=== PATIENT | male | born 1930 | race Caucasian/White ===

== ENCOUNTER 2017-01-25 14:54 | Outpatient (CLI) ==
[2017-01-25 15:28] LABS: BASOPHILS % (AUTO) 0.5 % (0.0-3.0); EOSINOPHILS # (AUTO) 0.1 K/ul (0.0-0.7); EOSINOPHILS % (AUTO) 3.1 % (0.0-7.0); HEMATOCRIT 24.4 % (42.0-52.0); HEMOGLOBIN 8.3 g/dl (14.0-18.0); LYMPHOCYTES # (AUTO) 1.1 K/uL (0.60-3.4); LYMPHOCYTES % (AUTO) 57.7 (10.0-50.0); MEAN CORPUSCULAR HEMOGLOBIN 36.1 pg (27.0-31.0); MEAN CORPUSCULAR VOLUME 106.1 fl (80.0-94.0); MONOCYTES # (AUTO) 0.1 K/uL (0.4-2.0); MONOCYTES % (AUTO) 3.1 (0-10); NEUTROPHILS # (AUTO) 0.7 K/ul (2.0-6.9); NEUTROPHILS % (AUTO) 34.6
[2017-01-25 16:03] LABS: WHITE BLOOD COUNT 1.94 K/ul (4.2-10.2)
[2017-01-25 16:04] LABS: PLATELET COUNT 22 10^3/uL (140-440)
[2017-01-25 16:06] LABS: ANISOCYTOSIS 3+ (NOT PRESENT); HYPOCHROMASIA 1+ (NOT PRESENT); PLATELET ESTIMATE 30000
== END 2017-01-25 14:55 | disposition home or self-care (01) ==
LOC: NONPT 14:54
PROVIDERS: ATTEND Internal Medicine
DX: D46.9 Myelodysplastic syndrome, unspecified (principal); C95.90 Leukemia, unspecified not having achieved remission; J90 Pleural effusion, not elsewhere classified
CPT/HCPCS: 85008; 85025

== ENCOUNTER 2017-02-01 15:44 | Outpatient (CLI) ==
[2017-02-01 15:57] LABS: HEMATOCRIT 22.5 % (42.0-52.0); HEMOGLOBIN 7.7 g/dl (14.0-18.0); MEAN CORPUSCULAR HGB CONC 34.2 (31.8-35.4); MEAN CORPUSCULAR VOLUME 108.2 fl (80.0-94.0); RED BLOOD COUNT 2.08 10^6/ul (4.70-6.10)
[2017-02-01 16:04] LABS: WHITE BLOOD COUNT 1.63 K/ul (4.2-10.2)
[2017-02-01 16:05] LABS: PLATELET COUNT 20 10^3/uL (140-440)
[2017-02-01 16:17] LABS: POLYCHROMASIA 2+ (NOT PRESENT)
[2017-02-01 16:18] LABS: ANISOCYTOSIS 2+ (NOT PRESENT); HYPOCHROMASIA 1+ (NOT PRESENT); POIKILOCYTOSIS 1+ (NOT PRESENT); TEAR DROP CELLS 1+ (NOT PRESENT)
== END 2017-02-01 15:45 | disposition home or self-care (01) ==
LOC: LAB 15:44
PROVIDERS: ATTEND Internal Medicine
DX: C95.90 Leukemia, unspecified not having achieved remission (principal); D46.9 Myelodysplastic syndrome, unspecified
CPT/HCPCS: 36415; 85007; 85025